=== PATIENT | female | born 1990 | race Caucasian/White ===

== ENCOUNTER 2017-10-29 20:12 | Emergency (ER) | payer MEDICAID ==
[2017-10-29] MEDS ORDERED: DEXAMETHASONE 4 MG TAB PO ONE (20:46)
--- NOTE | 2017-10-29 20:51 | EDPHY ---
General Narrative: CHIEF COMPLAINT: Opiate withdrawal, syncope, pain HISTORY OF PRESENT ILLNESS: Patient reports multiple complaints. She complains of withdrawing from opiates abruptly, thus she started using heroin over the past 2 weeks. She admits to having used to 3 times a day but wants to detox from this. She says she is doing so because of chronic pain that she has from multiple autoimmune disorders including lupus. She says she frequently has syncopal episodes from this. She has no chest pain, nor has she had any chest pain recently. No shortness of breath. No fever. No headache. Her pain is global. It is severe. She was seen at [facility] 2 days ago and discharged home. 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 She has no other associated complaints or modifying factors. REVIEW OF SYSTEMS: Ten systems reviewed and are negative unless otherwise noted in the HPI PCP: None currently. Says that she was discharged from her primary care physician in [place] SPECIALISTS: None currently PAST MEDICAL HISTORY: Multiple autoimmune disorders including lupus and chronic pain. Previous heroin dependency SOCIAL HISTORY: Daily smoker. No alcohol use. Daily heroin use for the past 2-3 weeks FAMILY HISTORY: Noncontributory EXAMINATION General Appearance: Alert, no distress, fidgeting Head: normocephalic, atraumatic Eyes: Pupils equal and round, no conjunctival pallor or injection ENT, Mouth: Mucous membranes moist. Airway widely patent Neck: Normal inspection, supple, non-tender Respiratory: Lungs are clear to auscultation. No wheezing rhonchi or crackles Cardiovascular: Regular rate and rhythm. No murmur Gastrointestinal: Abdomen is soft and nontender. No tympany rigidity. Back: non-tender, no bony abnormalities Neurological: GCS 15. Cranial nerves 2-12 grossly intact. No tremor. A&O, nonfocal, normal gait Skin: Warm and dry, no rash. Multiple areas of mild bruising in bilateral ACs consistent with vena punctures. Extremities: Nontender, no pedal edema Psychiatric: Mood and affect normal DIFFERENTIAL DIAGNOSES: Including but not limited to opiate abuse, opiate withdrawal, chronic pain, lupus, autoimmune disorder MDM: 8:45 p.m. Previous opiate abuse with current heroin use. Patient does report chronic pain. She denies injecting the heroin, but does have suspicious orozco on the arms that would suggest otherwise. She is in no acute distress. Vital signs are stable. She has no chest pain. I will obtain EKG and laboratory studies. She reports being seen 2 [facility]. This is not available in [facility], thus we will contact them to confirm. 9:15 p.m. Case discussed with Dr. Denise. She agrees with the plan thus far. 9:43 p.m. Patient is asking to be discharged home. I sat down and had a very lengthy discussion with her. We discussed her heroin abuse in the likely symptoms that she will encounter should she stop culture. We discussed contacting the on- call primary care physician to establish as a new primary care physician. We discussed contacting the case management nurse here if she needs help obtaining a primary care physician. We discussed nausea medication prescriptions for her nausea should she choose to go cold turkey on the opiates. I recommend that she find a primary care physician to discuss outpatient detox/therapy versus pain management or methadone clinic. She is agreeable with this plan. She would like no further treatment wants to be discharged home. I do feel she is stable for discharge home at this time EKG interpretation: Dr. Denise Sinus rhythm without ischemia. No previous available for comparison SUPERVISION: Patient was independently examined, but I discussed the case with my secondary supervising physician Dr. Denise - History Smoking Status: Current every day smoker - Objective Vital Signs: Initial Vital Signs Temperature (C) 97.9 F 10/29/17 20:18 Heart Rate 90 10/29/17 20:18 Respiratory Rate 18 10/29/17 20:18 Blood Pressure 112/68 10/29/17 20:18 O2 Sat (%) 99 10/29/17 20:18 O2 Delivery Mode Room Air Allergies/Adverse Reactions: No Known Allergies Allergy (Unverified 10/29/17 20:25) Home Medications: Medication Instructions Recorded Cymbalta 10/29/17 Flexeril 10/29/17 Lyrica 10/29/17 Ondansetron Odt [Zofran Odt 4 mg 4 mg PO Q6 PRN #9 tab 10/29/17 (*)] Prednisolone 10/29/17 Promethazine HCl [Phenergan 25mg 25 mg PO Q8 PRN #9 tab 10/29/17 (*)] traZODone 10/29/17 Laboratory Results: Laboratory Results 10/29/17 21:00 10/29/17 21:00 10/29/17 10/29/17 10/29/17 21:00 21:00 21:00 WBC 6.88 10^3/uL 10^3/uL (3.80-9.50) RBC 4.87 10^6/uL 10^6/uL (4.18-5.33) Hgb 14.7 g/dL g/dL (12.6-16.3) Hct 41.0 % % (38.0-47.0) MCV 84.2 fL fL (81.5-99.8) MCH 30.2 pg pg (27.9-34.1) MCHC 35.9 g/dL g/dL (32.4-36.7) RDW 12.3 % % (11.5-15.2) Plt Count 289 10^3/uL 10^3/uL (150-400) MPV 9.9 fL fL (8.7-11.7) Neut % (Auto) 54.5 % % (39.3-74.2) Lymph % (Auto) 37.2 % % (15.0-45.0) [place] % (Auto) 6.1 % % (4.5-13.0) Eos % (Auto) 1.3 % % (0.6-7.6) Baso % (Auto) 0.6 % % (0.3-1.7) Nucleat RBC Rel Count 0.0 % % (0.0-0.2) Absolute Neuts (auto) 3.75 10^3/uL 10^3/uL (1.70-6.50) Absolute Lymphs (auto) 2.56 10^3/uL 10^3/uL (1.00-3.00) Absolute Monos (auto) 0.42 10^3/uL 10^3/uL (0.30-0.80) Absolute Eos (auto) 0.09 10^3/uL 10^3/uL (0.03-0.40) Absolute Basos (auto) 0.04 10^3/uL 10^3/uL (0.02-0.10) Absolute Nucleated RBC 0.00 10^3/uL 10^3/uL (0-0.01) Immature Gran % 0.3 % % (0.0-1.1) Immature Gran # 0.02 10^3/uL 10^3/uL (0.00-0.10) Sodium 142 mEq/L mEq/L (134-144) Potassium 3.3 mEq/L L mEq/L (3.5-5.2) Chloride 107 mEq/L mEq/L (97-110) Carbon Dioxide 22 mEq/l mEq/l (22-31) Anion Gap 13 mEq/L mEq/L (8-16) BUN 9 mg/dL mg/dL (7-23) Creatinine 0.7 mg/dL mg/dL (0.6-1.0) Estimated GFR > 60 Glucose 91 mg/dL mg/dL (70-100) Calcium 9.6 mg/dL mg/dL (8.5-10.4) Lipase 54 IU/L IU/L (23-300) Beta HCG, Qual NEGATIVE Medications Given: Discontinued Medications Dexamethasone (Decadron) 8 mg PO EDNOW ONE Stop: 10/29/17 20:47 Last Admin: 10/29/17 21:04 Dose: 8 mg Diphenhydramine HCl (Benadryl) 25 mg PO EDNOW ONE Stop: 10/29/17 21:05 Last Admin: 10/29/17 21:04 Dose: 25 mg Departure - Departure Disposition: Home, Routine, Self-Care Clinical Impression: Heroin abuse Opioid dependence Qualifiers: Substance use status: uncomplicated Qualified Code(s): F11.20 - Opioid dependence, uncomplicated Condition: Good Instructions: Narcotic Abuse (ED), Opioid Withdrawal (ED), Opioid Pain Management (ED) Additional Instructions: 1. Contact physician provided to established as a new patient 2. ED precautions as discussed 3. Nausea medications as prescribed as needed Referrals: [facility],. [Clinic] - As per Instructions Marlena Verdugo DO [Doctor of Osteopathy] - As per Instructions Stand Alone Forms: [facility] Prescriptions: Ondansetron Odt [Zofran Odt 4 mg (*)] 4 mg PO Q6 PRN #9 tab PRN Reason: Nausea/Vomiting, Use 1st Promethazine HCl [Phenergan 25mg (*)] 25 mg PO Q8 PRN #9 tab PRN Reason: Nausea/Vomiting, Use 1st
--- NOTE | 2017-10-29 20:57 | CPEKG ---
Heart Rate: 53 RR Interval: 1132 P-R Interval: 124 QRSD Interval: 104 QT Interval: 456 QTC Interval: 429 P Hamilton: 21 QRS Hamilton: 49 T Wave Hamilton: 9 EKG Severity - NORMAL ECG - EKG Impression: SINUS RHYTHM Electronically Signed By: Earlene Denise 29-Oct-2017 23:22:27
[2017-10-29] MEDS ORDERED: diphenhydrAMINE 25 MG CAP PO ONE ×2 (21:03→21:04)
[2017-10-29 21:18] LABS: % IMMATURE GRANULYOCYTES 0.3 % (0.0-1.1); ABSOLUTE IMMATURE GRANULOCYTES 0.02 10^3/uL (0.00-0.10); ADD DIFF? NO; ADD MORPH? NO; ADD SCAN? NO; ATYPICAL LYMPHOCYTE FLAG 0 (0-99); FRAGMENT RBC FLAG 0 (0-99); HEMOGLOBIN 14.7 g/dL (12.6-16.3); LEFT SHIFT FLG 0 (0-99); LIPEMIA HEMOLYSIS FLAG 90 (0-99); MEAN CELL HEMOGLOBIN 30.2 pg (27.9-34.1); MEAN CELL HEMOGLOBIN CONCENTR. 35.9 g/dL (32.4-36.7); MEAN CELL VOLUME 84.2 fL (81.5-99.8); MEAN PLATELET VOLUME 9.9 fL (8.7-11.7); PLATELET CLUMPS FLAG 20 (0-99); PLATELET COUNT 289 10^3/uL (150-400); RED BLOOD CELL COUNT 4.87 10^6/uL (4.18-5.33); RED CELL DISTRIBUTION WIDTH 12.3 % (11.5-15.2)
[2017-10-29 21:31] LABS: ANION GAP 13 mEq/L (8-16); CALCIUM 9.6 mg/dL (8.5-10.4); CARBON DIOXIDE 22 mEq/l (22-31); CHLORIDE 107 mEq/L (97-110); CREATININE 0.7 mg/dL (0.6-1.0); GLOMERULAR FILTRATION RATE > 60; GLUCOSE 91 mg/dL (70-100); POTASSIUM 3.3 mEq/L (3.5-5.2); SODIUM 142 mEq/L (134-144)
[2017-10-29 21:52] VITALS: BP 118/87; PULSE 82; RESP 16; TEMP 98.1; O2SAT 98
== END 2017-10-29 21:52 | disposition home or self-care (01) ==
DX: F11.20 Opioid dependence, uncomplicated (principal); F17.200 Nicotine dependence, unspecified, uncomplicated